=== PATIENT | female | born 1965 | race Caucasian/White ===

== ENCOUNTER 2019-08-17 17:58 | Emergency (ER) | payer BC, SELFPAY ==
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
[2019-08-17 18:06] VITALS: BP 159/89; PULSE 55; RESP 20; TEMP 36.3; O2SAT 100
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
[2019-08-17 19:30] VITALS: BP 135/71; PULSE 60; RESP 20; O2SAT 100
[2019-08-17 20:13] VITALS: BP 154/72; PULSE 60; RESP 20; O2SAT 100
== END 2019-08-17 20:15 | disposition home or self-care (01) ==
PROVIDERS: Emergency Provider Emergency Medicine; PCP Internal Medicine
DX: S42.032A Displaced fracture of lateral end of left clavicle, initial encounter for closed fracture (principal); V18.4XXA Pedal cycle driver injured in noncollision transport accident in traffic accident, initial encounter; Y93.55 Activity, bike riding
CPT/HCPCS: 70450; 72125; 73030; 99284; A4565